=== PATIENT | male | born 1950 | race Caucasian/White ===

== ENCOUNTER 2018-04-01 11:20 | Inpatient (IN) | payer BC, OTHER ==
[2018-04-01 11:50] VITALS: BMI 30.7
--- NOTE | 2018-04-01 12:37 | PDOC ---
History of Present Illness - General Chief Complaint: Scabies Stated Complaint: BREATHING PROBLEM,RASH Time Seen by Provider: 04/01/18 12:37 - History of Present Illness Initial Comments: The patient is a 67M w/ a history of T2DM s/p R BKA who presents for evaluation for 1m of generalized rash/lesions over his torso, BUE, neck, and head. He states that they started when he moved here about 1m ago. He reports that they start as pustules that itch, he then scratches them until they open. They then scab but remain painful afterwards. No one else he knows has similar lesions. He lives alone. Denies fevers/chills, SANDHU, chest pain, V/C/D, weakness, dysuria, hematuria, or blood in his stool. 04/01/18 12:55 Past History - Past Medical History Allergies/Adverse Reactions: Allergies Allergy/AdvReac Type Severity Reaction Status Date / Time No Known Allergies Allergy Verified 04/01/18 11:47 Home Medications: Ambulatory Orders Insulin (Levemir) [Levemir Vial] 40 units SQ BID 04/01/18 Lisinopril 10 mg PO DAILY 04/01/18 metFORMIN HCL [Metformin HCl] 850 mg PO BID 04/01/18 COPD: No Diabetes: Yes Kidney Stones: Yes - Suicide/Smoking/Psychosocial Hx Smoking History: Former smoker Have you smoked in the past 12 months: No Information on smoking cessation initiated: No Hx Alcohol Use: No Drug/Substance Use Hx: No Review of Systems - Review of Systems Able to Perform ROS?: Yes Comments:: GENERAL/CONSTITUTIONAL: No fever or chills. No weakness HEAD, EYES, EARS, NOSE AND THROAT: No change in vision. No ear pain or discharge. No sore throat CARDIOVASCULAR: No chest pain or shortness of breath RESPIRATORY: Denies hemoptysis GASTROINTESTINAL: Denies vomiting, diarrhea or constipation GENITOURINARY: No dysuria, frequency, or change in urination MUSCULOSKELETAL: No joint or muscle swelling or pain. No neck or back pain SKIN: per HPI NEUROLOGIC: No headache, vertigo, loss of consciousness, or change in strength/ sensation ENDOCRINE: No increased thirst. No abnormal weight change HEMATOLOGIC/LYMPHATIC: No anemia, easy bleeding, or history of blood clots ALLERGIC/IMMUNOLOGIC: No hives or skin allergy 12/04/18 12:39 Is the patient limited [place] proficient: No *Physical Exam - Vital Signs Last Vital Signs Temp Pulse Resp BP Pulse Ox 97.4 F L 109 H 18 102/55 L 100 04/01/18 11:47 04/01/18 11:47 04/01/18 11:47 04/01/18 11:47 04/01/18 11:47 - Physical Exam Comments: GENERAL: Awake, alert, and fully oriented, in no acute distress HEAD: No signs of trauma, normocephalic, atraumatic EYES: PERRLA, EOMI, sclera anicteric, conjunctiva clear ENT: Hearing grossly normal, nares patent, oropharynx clear without exudates. Moist mucosa LUNGS: No distress, speaks full sentences, clear to auscultation bilaterally HEART: Regular rate and rhythm, normal S1 and S2, no murmurs appreciated, peripheral pulses normal and equal bilaterally ABDOMEN: Soft, nontender, normoactive bowel sounds. No guarding, no rebound. EXTREMITIES : Normal inspection, Normal range of motion, no edema NEUROLOGICAL: Diffuse hyperalgesia over upper body, love near lesions. Cranial nerves II through XII grossly intact. Normal speech, normal gait, no focal sensorimotor deficits SKIN:Diffuse rash over torso and BUE. Pt describes pustules that are pruritic then transform into what is seen on presentation. Clustered, scabbed lesions over torso, BUE, neck. 04/01/18 12:39 Moderate Sedation - Procedure Monitoring Vital Signs: Procedure Monitoring Vital Signs Temperature 97.4 F L 04/01/18 11:47 Pulse Rate 109 H 04/01/18 11:47 Respiratory Rate 18 04/01/18 11:47 Blood Pressure 102/55 L 04/01/18 11:47 O2 Sat by Pulse Oximetry (%) 100 04/01/18 11:47 ED Treatment Course - LABORATORY CBC & Chemistry Diagram: 04/01/18 15:00 04/01/18 15:00 Medical Decision Making - Medical Decision Making The patient is a 67M w/ a history of T2DM who presents for evaluation of 1 month of generalized upper body rash/lesions associated with hyperalgesia ED Course Tylenol 975mg PO once for pain 04/01/18 12:53 Fentanyl, Benadryl for symptoms Acyclovir for prevention of PHN Plan for admission for disseminated zoster 04/01/18 15:16 No leukocytosis No anemia 04/01/18 15:21 Hyperglycemia 644 -1L NS -10u SQ insulin 04/01/18 16:04 Will start LR @ 100cc/hr after bolus 04/01/18 16:25 Patient refusing HIV testing Will obtain hep panel Dispo: admitted for diffuse rash -ID and Derm consulted -Derm reports they will see pt tomorrow 04/01/18 20:11 *DC/Admit/Observation/Transfer Diagnosis at time of Disposition: Disseminated zoster - Discharge Dispostion Condition at time of disposition: Good Decision to Admit order: Yes - Referrals - Patient Instructions - Post Discharge Activity
[2018-04-01] MEDS ORDERED: ACETAMINOPHEN 325 MG TABLET (FP) PO ONE (12:45)
[2018-04-01] MEDS ORDERED: ACETAMINOPHEN 325 MG TABLET (FP) ONE (13:44)
[2018-04-01] MEDS ORDERED: ACYCLOVIR INJECTION 500 MG in DEXTROSE 5%-WATER - 100 ML IVPB ONE (14:42)
--- NOTE | 2018-04-01 15:15 | PDOC ---
Attending Attestation - Resident Resident Name: Steven Yepez - ED Attending Attestation I have performed the following: I have examined & evaluated the patient, The case was reviewed & discussed with the resident, I agree w/resident's findings & plan - HPI HPI: 04/01/18 15:10 67-year-old male with history of diabetes and hepatitis C followed in a [place] clinic presents with generalized painful rash for 1 month. Patient reports progressive development of localized pain to initially normal-appearing skin, followed by onset of what he calls a pimple, followed by itching and severe pain. The lesions have occurred throughout his body, mostly in the torso and arms, he has marked hyperesthesias all over his skin. Denies any travel, no sick contacts, no obvious insect bites or infestations. Did have chickenpox as a child, denies any ALLERGIES. No hiking, no weight loss or fevers or chills. denies IV drug use, reports HIV negative on recent testing - Physicial Exam PE: 04/01/18 15:12 Vitals as noted Well-appearing but uncomfortable due to hyperesthesias Scattered encrusted and mostly individual lesions throughout his torso, the more recent appear to have erythematous base, no intact vesicular lesions, no induration or abscesses or cellulitis. rash to torso, arms, upper legs, and L ear. no notable LAD - Medical Decision Making 04/01/18 15:14 67-year-old male with diffuse painful rash ongoing for a month, seems most consistent with disseminated zoster. Has hepatitis C, untreated. Labs Start acyclovir ID consult Admission 04/01/18 17:10 ID at bedside, low suspicion for disseminated zoster, ? hep dermatitis. maintain isolation per recs, proceed with admit. derm to see tomorrow Heart Score/ECG Review #1 ECG reviewed & interpreted by me at: 15:38 General ECG Interpretation: Sinus Rhythm, Normal Rate (94), Normal Intervals ( qtc 465), No acute ischemic changes (q waves III/AVF, prwp)
[2018-04-01 15:18] LABS: HEMOGLOBIN 14.5 GM/dL (11.7-16.9); MCH 32.3 pg (25.7-33.7); MCHC 36.3 g/dl (32.0-35.9); MEAN PLT VOLUME 8.7 fl (7.5-11.1); PLATELET COUNT 145 K/MM3 (134-434); RBC 4.49 M/mm3 (4.00-5.60); RDW 13.9 % (11.9-15.9); WHITE BLOOD COUNT 7.2 K/mm3 (4.0-10.0)
[2018-04-01 15:54] LABS: ALK PHOS 125 U/L (45-117); ANION GAP 6 MMOL/L (8-16); BLOOD UREA NITROGEN 24 mg/dL (7-18); CHLORIDE 93 mmol/L (98-107); CO2 29 mmol/L (21-32); CREATININE 1.5 mg/dL (0.55-1.3); POTASSIUM 4.3 mmol/L (3.5-5.1); SGOT/AST 63 U/L (15-37); SGPT/ALT 65 U/L (13-61); SODIUM 128 mmol/L (136-145); TOT PROT 6.3 g/dl (6.4-8.2)
[2018-04-01 15:55] LABS: GLUCOSE,RANDOM 644 mg/dL (74-106)
[2018-04-01] MEDS ORDERED: SODIUM CHLORIDE 0.9% 500 ML INFUS.BAG IV ONE (16:02)
[2018-04-01] MEDS ORDERED: INSULIN REGULAR HUMAN 100 UNITS/ML *VIAL SQ ONE (16:08)
[2018-04-01] MEDS ORDERED: INSULIN (NOVOLOG) ASPART 100 UNITS/ML 10ML VIAL ONE ×2 (16:08→22:03)
[2018-04-01] MEDS: LACTATED RINGERS SOLUTION 1,000 ML/1,000 ML INFUS.BAG IV SCH (17:17)
--- NOTE | 2018-04-01 18:26 | CON.ID ---
Consult Consult Specialty:: infectious disease Referred by:: hospitalist Reason for Consultation:: rash - History of Present Illness Chief Complaint: 67 yo man with DM and Hep c (untreated). with 2 to 3 month history of pruritic rash History of Present Illness: no fevers no new meds no travel pet dog lives in an apt in [place] no bed bugs, no one else with rash no fevers no oral lesions notes intensely pruritic maculopapular rash that has intermittenlty appeared on legs, buttocks, scalp line no response to topical steroids noted in Ed to have very elevated blood sugar doesnt check his sugars daily doesn't know the name of his diabetic doctor former heroin user reports he is hiv negative hep c positive - History Source History Provided By: Patient, Medical Record Limitations to Obtaining History: No Limitations - Past Medical History Hepatobiliary: Yes: Hepatitis C Endocrine: Yes: Diabetes Mellitus - Past Surgical History Additional Surgical History: bka right, left TMA - Alcohol/Substance Use Hx Alcohol Use: No - Smoking History Smoking history: Former smoker Have you smoked in the past 12 months: No - Social History ADL: Independent History of Recent Travel: No Home Medications - Allergies Allergies/Adverse Reactions: Allergies Allergy/AdvReac Type Severity Reaction Status Date / Time No Known Allergies Allergy Verified 04/01/18 11:47 - Home Medications Home Medications: Ambulatory Orders Insulin (Levemir) [Levemir Vial] 40 units SQ BID 04/01/18 Lisinopril 10 mg PO DAILY 04/01/18 metFORMIN HCL [Metformin HCl] 850 mg PO BID 04/01/18 Review of Systems - Review of Systems Constitutional: reports: No Symptoms. denies: Chills, Diaphoresis, Fever Eyes: reports: No Symptoms HENT: reports: No Symptoms. denies: Difficult Swallowing Neck: reports: No Symptoms Cardiovascular: reports: No Symptoms. denies: Chest Pain Respiratory: denies: Cough, SOB Gastrointestinal: reports: No Symptoms. denies: Abdominal Pain Genitourinary: reports: No Symptoms Physical Exam Vital Signs: Vital Signs Temperature 97.5 F L 04/01/18 15:56 Pulse Rate 95 H 04/01/18 15:56 Respiratory Rate 18 04/01/18 15:56 Blood Pressure 144/78 04/01/18 15:56 O2 Sat by Pulse Oximetry (%) 99 04/01/18 15:56 Constitutional: Yes: Well Nourished, No Distress, Calm Eyes: Yes: Conjunctiva Clear HENT: Yes: Atraumatic, Normocephalic. No: Thrush, Other Neck: Yes: Supple Cardiovascular: Yes: Regular Rate and Rhythm Respiratory: Yes: Regular, CTA Bilaterally Gastrointestinal: Yes: Normal Bowel Sounds, Soft Extremities: Yes: Other (well healed right bka, dry scab on left TMA site) Integumentary: Yes: Rash (scattered dry papular rash scattered onlower back buttocks, back of neck, no lesions on pallms, webs of fingers, elbows, axilla or groin) Labs: CBC, BMP 04/01/18 15:00 04/01/18 15:00 Problem List - Problems (1) Rash and nonspecific skin eruption Code(s): R21 - RASH AND OTHER NONSPECIFIC SKIN ERUPTION (2) Uncontrolled diabetes mellitus Code(s): E11.65 - TYPE 2 DIABETES MELLITUS WITH HYPERGLYCEMIA (3) Hep C w/o coma, chronic Code(s): B18.2 - CHRONIC VIRAL HEPATITIS C (4) Abnormal LFTs Code(s): R94.5 - ABNORMAL RESULTS OF LIVER FUNCTION STUDIES Assessment/Plan ssupect rash is related to DM/hep c- does not look infectious continue contact isolation until evaluated by dermatology check hgbaic check afp given history of hep c and abnl lfts d/w hospitalist
--- NOTE | 2018-04-01 20:19 | HP ---
CHIEF COMPLAINT: Itchy rash on torso, arms, neck and head PCP: HISTORY OF PRESENT ILLNESS: 67 year old male with a PMH of DM s/p R BKA, Hep C (untreated), and HTN presented to the ED with an itchy rash over his body that has worsened over 2-3 months. He has treated it with hydrocortisone cream, but the rash and itching have persisted. He has not had any contact with anyone who also has an itchy rash, he does not believe his apartment is infested with bed bugs. He has never had a rash like this in the past. He recently moved to an apartment in [place] from the [place]. He owns a dog but has been unable to keep it because his current building does not allow dogs. He is a former IV heroin user and contracted hepatitis C. He has never been treated. Denies fevers, SANDHU, congestion, SOB, chest pain, palpitations, n/v/d. Upon admission to the ED, labs notable for extremely elevated glucose of 644. He was given a dose of Acyclovir, benadryl, Fentanyl, and placed on a insulin drip. He was seen by ID specialist Dr. Sherman who does not believe the rash is of infectious origin. Patient on contact precautions until Derm consult has seen him. Recent Travel: No PAST MEDICAL HISTORY: Hepatitis C DM HTN PAST SURGICAL HISTORY: Right BKA Left toes amputation Social History: Lives alone in an apartment, recently moved to [place] from the [place]. Has a Yorkie. Smoking: Former Alcohol: Denies Drugs: Former Heroin user Allergies No Known Allergies Allergy (Verified 04/01/18 11:47) HOME MEDICATIONS: Home Medications Medication Instructions Recorded Insulin (Levemir) [Levemir Vial] 40 units SQ BID 04/01/18 Lisinopril 10 mg PO DAILY 04/01/18 metFORMIN HCL [Metformin HCl] 850 mg PO BID 04/01/18 REVIEW OF SYSTEMS CONSTITUTIONAL: Absent: fever, chills, diaphoresis, generalized weakness, malaise, loss of appetite, weight change HEENT: Absent: rhinorrhea, nasal congestion, throat pain, throat swelling, difficulty swallowing, mouth swelling, ear pain, eye pain, visual changes CARDIOVASCULAR: Absent: chest pain, syncope, palpitations, irregular heart rate, lightheadedness , peripheral edema RESPIRATORY: Absent: cough, shortness of breath, dyspnea with exertion, orthopnea, wheezing, stridor, hemoptysis GASTROINTESTINAL: Absent: abdominal pain, abdominal distension, nausea, vomiting, diarrhea, constipation, melena, hematochezia GENITOURINARY: Absent: dysuria, frequency, urgency, hesitancy, hematuria, flank pain, genital pain MUSCULOSKELETAL: Absent: myalgia, arthralgia, joint swelling, back pain, neck pain SKIN: (+) rash and itching Absent: pallor HEMATOLOGIC/IMMUNOLOGIC: Absent: easy bleeding, easy bruising, lymphadenopathy, frequent infections ENDOCRINE: Absent: unexplained weight gain, unexplained weight loss, heat intolerance, cold intolerance NEUROLOGIC: Absent: headache, focal weakness or paresthesias, dizziness, unsteady gait, seizure, mental status changes, bladder or bowel incontinence PSYCHIATRIC: Absent: anxiety, depression, suicidal or homicidal ideation, hallucinations. PHYSICAL EXAMINATION Vital Signs - 24 hr 04/01/18 04/01/18 11:47 15:56 Temperature 97.4 F L 97.5 F L Pulse Rate 109 H Pulse Rate [ 95 H Right] Respiratory 18 18 Rate Blood Pressure 102/55 L Blood Pressure 144/78 [Left Arm] O2 Sat by Pulse 100 99 Oximetry (%) GENERAL: Awake, alert, and fully oriented, in no acute distress. HEAD: Normal with no signs of trauma. EYES: Pupils equal, round and reactive to light, extraocular movements intact, sclera anicteric, conjunctiva clear. No lid lag. EARS, NOSE, THROAT: Ears normal, nares patent, oropharynx clear without exudates. Moist mucous membranes. NECK: Normal range of motion, supple without lymphadenopathy, JVD, or masses. LUNGS: Breath sounds equal, clear to auscultation bilaterally. No wheezes, and no crackles. No accessory muscle use. HEART: Regular rate and rhythm, normal S1 and S2 without murmur, rub or gallop. ABDOMEN: Soft, nontender, not distended, normoactive bowel sounds, no guarding, no rebound, no masses. No hepatomegaly or splenomegaly. MUSCULOSKELETAL: Normal range of motion at all joints. No bony deformities or tenderness. No CVA tenderness. UPPER EXTREMITIES: 2+ pulses, warm, well-perfused. No cyanosis. No clubbing. No peripheral edema. LOWER EXTREMITIES: Right BKA, healed surgical incision to stump, no edema or erythema, Left toes amputated, no calf tenderness. No peripheral edema. NEUROLOGICAL: No facial droop, tongue midline, normal speech. Normal gait. PSYCHIATRIC: Cooperative. Good eye contact. Flat affect SKIN: Diffuse, scattered, round, raised, excoriated patches to back, posterior neck, scalp, thighs, arms. no drainage, Warm, dry, normal turgor, no rashes or lesions noted, normal capillary refill. Laboratory Results - last 24 hr 04/01/18 04/01/18 15:00 15:00 WBC 7.2 RBC 4.49 Hgb 14.5 Hct 40.0 MCV 89.0 MCH 32.3 MCHC 36.3 H RDW 13.9 Plt Count 145 MPV 8.7 Sodium 128 L Potassium 4.3 Chloride 93 L Carbon Dioxide 29 Anion Gap 6 L BUN 24 H Creatinine 1.5 H Creat Clearance w eGFR 46.82 Random Glucose 644 H* Calcium 8.0 L Total Bilirubin 1.0 AST 63 H ALT 65 H Alkaline Phosphatase 125 H Total Protein 6.3 L Albumin 2.0 L EKG: NSR, rate 94, QTc 465, no signs of ischemic disease CXR: No acute cardiopulmonary disease present. Old left and right rib fractures. ASSESSMENT/PLAN: 67 year old male with a PMH of DM, Hep C, and HTN presented to the ED with an itchy rash over his body that has worsened over 2-3 months. His glucose upon admission was 644. He was admitted for and derm consult. Puritic Rash - Seen by ID specialist Dr. Sherman who does not believe rash is d/t infectious etiology - Possibly secondary to Hep C vs DM vs Parasite - Diphenhydramine 50 mg PO q6H PRN for itching - Derm consult with Dr. Heck ordered - Contact isolation until cleared by derm - ESR ordered DM - Uncontrolled; glucose 644 upon admission - R BKA, and left toes amputated - Aterial/janna doppler of LLE ordered - HOLD home Metformin 850 BID while inpatient - Continue home levemir 40U SQ BID - Hgb A1c ordered - Monitor glucose q1hr until stable - SS with novolog q4h SINGH - BUN/Cr 24/1.5 - No known baseline - Repeat BMP ordered - Consider nephrology consult Hyponatremia - Moderate; Na 128 - Appears euvolemic - Repeat BMP and TSH ordered HTN - Continue home Lisinopril 10 mg PO qday Hepatitis C - Former IV heroin user - Anicteric - Elevated LFTs - AST 63 - ALT 65 - Alk phos 125 - Has not been on medication, had been seen by GI in the past about possibly starting Harvoni - HIV negative - Hepatitis panel pending - AFP ordered to r/o hepatocellular carcinoma Prophylaxis - DVT: Heparin SQ FEN - PO intake adequate - Replete as needed - Diabetic Diet Disp: Patient requires further inpatient care. Visit type - Emergency Visit Emergency Visit: Yes ED Registration Date: 04/01/18 Care time: The patient presented to the Emergency Department on the above date and was hospitalized for further evaluation of their emergent condition. - New Patient This patient is new to me today: Yes Date on this admission: 04/01/18 - Critical Care Critical Care patient: No
[2018-04-01 21:55] LABS: ALBUMIN 1.8 g/dl (3.4-5.0); ALK PHOS 104 U/L (45-117); ANION GAP 9 MMOL/L (8-16); BILIRUBIN,TOTAL 0.7 mg/dL (0.2-1); BLOOD UREA NITROGEN 25 mg/dL (7-18); CALCIUM 7.3 mg/dL (8.5-10.1); CHLORIDE 101 mmol/L (98-107); CO2 25 mmol/L (21-32); CREATININE 1.2 mg/dL (0.55-1.3); POTASSIUM 4.3 mmol/L (3.5-5.1); SGOT/AST 57 U/L (15-37); SGPT/ALT 60 U/L (13-61); SODIUM 134 mmol/L (136-145); TOT PROT 5.5 g/dl (6.4-8.2)
[2018-04-01 21:57] LABS: GLUCOSE,RANDOM 524 mg/dL (74-106)
[2018-04-01] MEDS ORDERED: INSULIN (NOVOLOG) ASPART 100 UNITS/ML 10ML VIAL SQ ONE (21:58)
[2018-04-01] MEDS: INSULIN SLIDING SCALE (NOVOLOG) 1 VIAL SQ SCH (21:59)
[2018-04-02] MEDS ORDERED: ACETAMINOPHEN 500 MG TABLET (FP) PO ONE (00:41)
[2018-04-02] MEDS: HEPARIN NA (PORCINE) 5,000 UNITS/ML 1ML VIAL SQ SCH ×2 (01:06→06:34)
[2018-04-02] MEDS: INSULIN (LEVEMIR) 100 UNITS/ML UNITS SQ SCH ×2 (01:06→06:34)
[2018-04-02] MEDS: INSULIN SLIDING SCALE (NOVOLOG) 1 VIAL SQ SCH ×4 (01:07→10:54)
[2018-04-02] MEDS: diphenhydrAMINE HCL 25 MG CAPSULE (FP) PO PRN ×2 (03:52→09:59)
--- NOTE | 2018-04-02 07:34 | DS ---
Physical Exam: SUBJECTIVE: Patient seen and examined; was very itchy which is still present though somewhat improved with PRN medications. ID spoke with me yesterday; they do not believe this is diseminated zoster and recommended derm consultation. I spoke with Dr Heck this morning who told me that she would see the patient in her office and do all testing and Rx's for the derm related issue from her office. This was communicated to the patient. He will be discharged from the hospital for STAT followup at the derm office of Dr. Heck. Did verbalize understanding. 10 sys ROS done and negative aside from HPI OBJECTIVE: Vital Signs Period Temp Pulse Resp BP Sys/Shannon Pulse Ox Last 24 Hr 97.4 F-98 F 82-109 18-18 102-144/55-81 99-100 PHYSICAL EXAM GENERAL: The patient is awake, alert, and fully oriented, in no acute distress. HEAD: Normal with no signs of trauma. EYES: PERRL, extraocular movements intact, sclera anicteric, conjunctiva clear. ENT: Ears normal, nares patent, oropharynx clear without exudates, moist mucous membranes. NECK: Trachea midline, full range of motion, supple. LUNGS: Breath sounds equal, clear to auscultation bilaterally HEART: Regular rate and rhythm, S1, S2 without murmur, rub or gallop. ABDOMEN: Soft, nontender, nondistended, normoactive bowel sounds EXTREMITIES: 2+ pulses, warm, well-perfused, no edema.; BKA and TMA observed NEUROLOGICAL: Cranial nerves II through XII grossly intact. Normal speech PSYCH: Normal mood, normal affect. SKIN: scattered lesions with excoriations surrounding; circular 1x1cm not bleeding or appearing infected. LABS Laboratory Results - last 24 hr 04/01/18 04/01/18 04/01/18 15:00 15:00 20:15 WBC 7.2 RBC 4.49 Hgb 14.5 Hct 40.0 MCV 89.0 MCH 32.3 MCHC 36.3 H RDW 13.9 Plt Count 145 MPV 8.7 Sodium 128 L 134 L Potassium 4.3 4.3 Chloride 93 L 101 Carbon Dioxide 29 25 Anion Gap 6 L 9 BUN 24 H 25 H Creatinine 1.5 H 1.2 Creat Clearance w eGFR 46.82 > 60 POC Glucometer Random Glucose 644 H* 524 H* Calcium 8.0 L 7.3 L Total Bilirubin 1.0 0.7 AST 63 H 57 H ALT 65 H 60 Alkaline Phosphatase 125 H 104 Total Protein 6.3 L 5.5 L Albumin 2.0 L 1.8 L HIV 1&2 Antibody Screen HIV P24 Antigen 04/01/18 04/02/18 04/02/18 20:20 00:13 06:11 WBC RBC Hgb Hct MCV MCH MCHC RDW Plt Count MPV Sodium Potassium Chloride Carbon Dioxide Anion Gap BUN Creatinine Creat Clearance w eGFR POC Glucometer 386 119 Random Glucose Calcium Total Bilirubin AST ALT Alkaline Phosphatase Total Protein Albumin HIV 1&2 Antibody Screen Negative HIV P24 Antigen Negative HOSPITAL COURSE: Date of Admission:04/01/18 Date of Discharge: 04/02/18 1) Pruritic Rash -Seen by ID; no concern for disseminated zoster, etc. Recommended derm referral. Being sent to derm office today upon DC. Discussed with Dr. Heck. She will handle all prescribing for steroids, etc. but I did Rx him some benadryl for PRN. -ID thinks could be related to his untreated HCV vs. his uncontrolled DM. We will address those issues separately. 2) T2DM, uncontrolled -Sugars initially in the 600s; went down with appropriate tx. A1c in 12-range. He has elevated risk per ASCVD and qualifies for a moderate to high intensity statin which was started today. -I have serious concerns that his compliance is the issue; will DC him on his home regimine and have him see PCP in 3-5 days. He states that he used to live in the [place] and now he is in [place]. I question if access to care could be an issue, expecially as he is an amputee. Resent his home Rx for levemir and metformin. 3) S/P Amputation -Stereotyped PVD changes on remaining leg; recommend continued OP surveilance with ABIs and US. 4) HLD -New diagnosis; by ASCVD risk would qualify for moderate to high intensity staitin. Atorva 40 PO qHS and CMP at followup with PCP in 3-5 days. 5) Untreated HCV -States he sees someone in [place]. -Followup AFP as outpatient (result pending); referral to specialist to get him on Harvoni, etc. 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 Was very mild. 8) Hypoalbuminemia -Due to chronic disease with questionable nutritional component. -Followup OP 9) Obesity -BMI above 30; followup with PCP for lifestyle modifications. Full Code To followup OP: -AFP -Hepatitis Pannel Followups: -Dermatology (today upon DC with Dr. Heck) -PCP (3-5 days; will need CMP and reviewing the pending labs at that time) Thank you to the primary service for allowing [facility] to take part in the ongoing care of your patient. Minutes to complete discharge: 45 Discharge Summary Reason For Visit: DISSEMINATED HERPES ZOSTER,DM,HYPERGLYCEMIA Current Active Problems Abnormal LFTs (Acute) Disseminated zoster (Acute) Hep C w/o coma, chronic (Acute) Rash and nonspecific skin eruption (Acute) Uncontrolled diabetes mellitus (Acute) Condition: Good - Instructions Diet, Activity, Other Instructions: Diabetic Diet Activity as tolerated Go to Dermatology office of Dr. Heck IMMEDIATELY after leaving the hospital ; they are expecting you Followup with primary care 3-5 days. If no PCP that is accessable please nicol [phone] to schedule followup with [facility] (resident clinic). Follow all instructions from dermatology Referrals: Vivienne Heck MD [Staff Physician] - (Go to her clinic IMMEDIATELY after leaving hospital; they are expecting you for appointment.) primary care,pcp [Other] - 1 Week (Within 3-5 days Followup AFP, hepatitis pannel results. Need followup CMP as just started statin.) Disposition: HOME - Home Medications Comprehensive Discharge Medication List: Ambulatory Orders Insulin (Levemir) [Levemir Vial] 40 units SQ BID 04/01/18 Lisinopril 10 mg PO DAILY 04/01/18 metFORMIN HCL [Metformin HCl] 850 mg PO BID 04/01/18 This patient is new to me today: No Emergency Visit: No Critical Care patient: No - Discharge Referral Referred to [facility] No
[2018-04-02 08:11] LABS: CHOLESTEROL 148 mg/dL (50-200); HDL CHOLESTEROL 30 mg/dL (40-60); TRIGLYCERIDES 433 mg/dL (0-150)
[2018-04-02 08:19] LABS: ANION GAP 6 MMOL/L (8-16); BLOOD UREA NITROGEN 24 mg/dL (7-18); CALCIUM 7.8 mg/dL (8.5-10.1); CHLORIDE 105 mmol/L (98-107); CO2 29 mmol/L (21-32); CREATININE 0.9 mg/dL (0.55-1.3); GLUCOSE,RANDOM 161 mg/dL (74-106); MAGNESIUM 1.8 mg/dL (1.8-2.4); POTASSIUM 3.8 mmol/L (3.5-5.1); SODIUM 140 mmol/L (136-145)
[2018-04-02] MEDS ORDERED: LISINOPRIL 10 MG TABLET (FP) PO SCH (10:00)
[2018-04-02] MEDS ORDERED: NICOTINE 21 MG/24 HOURS TOPICAL PATCH TD SCH (10:00)
[2018-04-02 10:02] LABS: HEMATOCRIT 39.4 % (35.4-49); HEMOGLOBIN 14.3 GM/dL (11.7-16.9); MCH 32.2 pg (25.7-33.7); MCHC 36.3 g/dl (32.0-35.9); MEAN CELL VOLUME 88.8 fl (80-96); MEAN PLT VOLUME 9.1 fl (7.5-11.1); PLATELET COUNT 135 K/MM3 (134-434); RBC 4.44 M/mm3 (4.00-5.60)
[2018-04-02] MEDS: LACTATED RINGERS SOLUTION 1,000 ML/1,000 ML INFUS.BAG IV SCH (10:25)
[2018-04-02] MEDS ORDERED: INSULIN (NOVOLOG) ASPART 100 UNITS/ML 10ML VIAL ONE (10:48)
[2018-04-02 11:38] VITALS: BP 130/80; PULSE 76; TEMP 98
--- NOTE | 2018-04-02 13:03 | EKG ---
Test Reason : Blood Pressure : / mmHG Vent. Rate : 094 BPM Atrial Rate : 094 BPM P-R Int : 178 ms QRS Dur : 080 ms QT Int : 372 ms P-R-T Axes : 047 -20 021 degrees QTc Int : 465 ms NORMAL SINUS RHYTHM INFERIOR INFARCT , AGE UNDETERMINED ANTERIOR INFARCT , AGE UNDETERMINED ABNORMAL ECG WHEN COMPARED WITH ECG OF 01-MAY-2010 11:00, INFERIOR INFARCT IS NOW PRESENT INVERTED T WAVES HAVE REPLACED NONSPECIFIC T WAVE ABNORMALITY IN ANTERIOR LEADS Confirmed by DIANA VO, KAT ([id number]) on 04/02/2018 1:03:14 PM Referred By: Confirmed By:KAT ORTIZ MD
[2018-04-02] MEDS ORDERED: ATORVASTATIN CA 40 MG TABLET (FP) PO SCH (22:00)
[2018-04-03 05:25] LABS: HBSAG SCREEN Negative (Negative); HEP B CORE AB, TOT Positive (Negative)
== END 2018-04-02 13:38 | disposition home or self-care (01) | DRG 638 ==
LOC: JER 11:20 → JERBED 14:50 → J8W 23:52
PROVIDERS: ADMIT Internal Medicine; ATTEND Internal Medicine
DX: E11.65 Type 2 diabetes mellitus with hyperglycemia (principal); E87.1 Hypo-osmolality and hyponatremia; N17.9 Acute kidney failure, unspecified; R21 Rash and other nonspecific skin eruption; B18.2 Chronic viral hepatitis C; I10 Essential (primary) hypertension; E66.9 Obesity, unspecified; Z68.30 Body mass index [BMI] 30.0-30.9, adult; R94.5 Abnormal results of liver function studies; E88.09 Other disorders of plasma-protein metabolism, not elsewhere classified; E78.5 Hyperlipidemia, unspecified; Z87.891 Personal history of nicotine dependence; Z89.511 Acquired absence of right leg below knee; Z87.442 Personal history of urinary calculi
CPT/HCPCS: 36415; 71045-TC-FY; 80048; 80053; 80061; 82105; 82962; 83036; 83721; 83735; 84443; 85027; 85651; 86704; 86706; 86708; 87340; 87389; 87522; 93005; 93010; 99285-25; J1644

== ENCOUNTER 2019-01-10 13:27 | Inpatient (IN) | payer OTHER ==
--- NOTE | 2019-01-10 14:16 | PDOC ---
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 Per the patient, the wound on the lateral right knee occurred 1 month ago due to an ill fitted prosthesis. Over the course of 4 days, there is increased purulent discharge with foul odor. He was given abx for 1 week (unknown type) 3 weeks ago and it did not eusebio the symptoms. Denies the following: fever, chills, chest pain, SOB, abdominal pain, dysuria, hematuria, diarrhea, nausea, vomiting , and hematochezia. He has used collagenase and silvadene. Allergies: NKDA Past History - Past Medical History Allergies/Adverse Reactions: Allergies Allergy/AdvReac Type Severity Reaction Status Date / Time No Known Allergies Allergy Verified 04/01/18 11:47 Home Medications: Ambulatory Orders Atorvastatin Ca [Lipitor] 40 mg PO HS #30 tablet 04/02/18 Diphenhydramine HCl [Benadryl Capsule -] 50 mg PO Q6H PRN #60 capsule 04/02/18 Insulin (Levemir) [Levemir Vial] 40 units SQ BID #3 bot 04/02/18 Lisinopril 10 mg PO DAILY #30 tablet 04/02/18 Nicotine Patch [Nicoderm Patch -] 21 mg TD DAILY #14 patch 04/02/18 metFORMIN HCL [Metformin HCl] 850 mg PO BID #60 tablet 04/02/18 COPD: No Diabetes: Yes Kidney Stones: Yes - Suicide/Smoking/Psychosocial Hx Smoking History: Never smoked Have you smoked in the past 12 months: No Hx Alcohol Use: No Drug/Substance Use Hx: No Review of Systems - Review of Systems Able to Perform ROS?: Yes Is the patient limited Mohawk proficient: No Constitutional: No: Chills, Diaphoresis, Fever, Weakness HEENTM: No: Eye Pain, Ear Pain, Nose Pain, Throat Pain, Mouth Pain Respiratory: No: Cough, Shortness of Breath *Physical Exam - Vital Signs Last Vital Signs Temp Pulse Resp BP Pulse Ox 98 F 88 20 138/76 100 01/10/19 13:30 01/10/19 13:30 01/10/19 13:30 01/10/19 13:30 01/10/19 13:30 ED Treatment Course - LABORATORY CBC & Chemistry Diagram: 01/10/19 14:37 01/10/19 14:34 *DC/Admit/Observation/Transfer Diagnosis at time of Disposition: Wound discharge - Referrals - Patient Instructions - Post Discharge Activity
[2019-01-10] MEDS ORDERED: ACETAMINOPHEN 1000 MG/100 ML VIAL (NON FORMULARY) IVPB ONE (14:21)
[2019-01-10] MEDS ORDERED: PIPERACILLIN/TAZOB 3.375 GM 3.375 GM in DEXTROSE 5%-WATER - 50 ML IVPB ONE (14:21)
[2019-01-10] MEDS ORDERED: VANCOMYCIN 1,000 MG in DEXTROSE 5%-WATER - 250 ML IVPB ONE (14:21)
[2019-01-10] MEDS ORDERED: ACETAMINOPHEN INJECTION 100 ML IVPB ONE (14:27)
[2019-01-10] MEDS ORDERED: VANCOMYCIN 1 GRAM (PRE-DOCKED) 1,000 MG/250 ML BAG IVPB ONE (14:27)
[2019-01-10] MEDS ORDERED: PIPERACILLIN/TAZOB 3.375 GM 3.375 GM/50 ML BAG IVPB ONE (14:28)
--- NOTE | 2019-01-10 14:30 | PDOC ---
Attending Attestation - Resident Resident Name: PiyushOswald - ED Attending Attestation I have performed the following: I have examined & evaluated the patient, The case was reviewed & discussed with the resident, I agree w/resident's findings & plan, Exceptions are as noted - HPI HPI: 01/10/19 19:00 Mr. Moran is a 68 yo M h/o DM (currently on insulin) and Right BTK amputation 2013, presenting with worsening pain and foul odor from right AKA stump site. The wound initially began 1 month ago due to an ill fitted prosthesis. He was given abx 3 weeks ago for 1 week which did not improve his wound. Over the past 4 days, he has noted increased purulent malodorous discharge with foul odor. No fever, chills. (+) right AKA site tenderness - Physicial Exam PE: 01/10/19 14:30 GENERAL: The patient is in no acute distress. ENT: Ears normal, nares patent, oropharynx clear without exudates. Moist mucous membranes. NECK: Normal range of motion, supple LUNGS: Breath sounds equal, clear to auscultation bilaterally. No wheezes, and no crackles. HEART:Regular rate and rhythm, normal S1 and S2 without murmur, rub or gallop. ABDOMEN: Soft, nontender, normoactive bowel sounds. EXTREMITIES: Right AKA stump site clean, right lateral lesion NEUROLOGICAL: Cranial nerves II through XII grossly intact. Normal speech. No focal neurological deficits. SKIN: Warm, Dry, normal turgor, no rashes or lesions noted. 01/10/19 19:06 - Medical Decision Making 01/10/19 19:03 EKG: NSR rate of 79 bpm, axis nml, intervals nml, no st elevation or depression - j point elevation v2 01/10/19 19:04 Laboratory Tests 01/10/19 01/10/19 14:34 14:37 WBC 5.4 Hgb 11.2 L Hct 31.9 L D Plt Count 128 L BUN 29.0 H Creatinine 1.1 Xray: superficial wound defect noted, no air in tissues Wound culture sent Abx Admitted
[2019-01-10 14:48] LABS: EOS % 1.9 % (0-4.5); HEMATOCRIT 31.9 % (35.4-49); HEMOGLOBIN 11.2 GM/dL (11.7-16.9); LYMPH % 24.5 % (8-40); MCH 31.8 pg (25.7-33.7); MCHC 35.3 g/dl (32.0-35.9); MEAN CELL VOLUME 90.2 fl (80-96); MEAN PLT VOLUME 8.3 fl (7.5-11.1); MONO % 6.3 % (3.8-10.2); NEUT % 66.3 % (42.8-82.8); PLATELET COUNT 128 K/MM3 (134-434); RBC 3.53 M/mm3 (4.00-5.60); RDW 15.6 % (11.9-15.9); WHITE BLOOD COUNT 5.4 K/mm3 (4.0-10.0)
[2019-01-10 15:17] LABS: ALBUMIN 1.8 g/dl (3.4-5.0); BILIRUBIN,TOTAL 0.7 mg/dL (0.2-1); CALCIUM 8.3 mg/dL (8.5-10.1); CREATININE 1.1 mg/dL (0.55-1.3); POTASSIUM 3.7 mmol/L (3.5-5.1); TOT PROT 6.1 g/dl (6.4-8.2)
[2019-01-10] MEDS ORDERED: ACETAMINOPHEN 325 MG TABLET (FP) PO PRN (17:48)
[2019-01-10] MEDS ORDERED: morphine CARPU-JECT 4 MG/1 ML DISP.SYRIN IVPUSH ONE (17:53)
[2019-01-10] MEDS ORDERED: PIPERACILLIN/TAZOB 3.375 GM 3.375 GM in DEXTROSE 5%-WATER - 50 ML IVPB SCH (18:00)
[2019-01-10] MEDS ORDERED: morphine SULFATE 4 MG/ML VIAL ONE (18:38)
[2019-01-10] MEDS: PIPERACILLIN/TAZOB 3.375 GM 3.375 GM in DEXTROSE 5%-WATER - 50 ML IVPB SCH (18:44)
--- NOTE | 2019-01-10 20:47 | HP ---
Admitting History and Physical - Primary Care Physician PCP: Richelle Larios - Admission Chief Complaint: right leg pain History of Present Illness: 68 year old male PMHx DM2, HLD, right BKA presents with progressively worsening right lateral knee pain, ulceration and drainage. Patient states about a month ago he used a prosthesis that was too big and cut his leg and since then he has had a nonhealing wound. He saw PCP and was put on PO antibiotics which he finished about 2 weeks ago without improvement. He denies fever/chills, nvd. no cp, sob, palpitations History Source: Patient Limitations to Obtaining History: No Limitations - Past Medical History Cardiovascular: Yes: Hyperlipdemia Hepatobiliary: Yes: Hepatitis C (untreated) Renal/: Yes: Renal Calculi Endocrine: Yes: Diabetes Mellitus - Past Surgical History Additional Past Surgical History: right BKA, left TMA - Smoking History Smoking history: Former smoker Have you smoked in the past 12 months: No - Alcohol/Substance Use Hx Alcohol Use: No History of Substance Use: reports: Heroin - Social History Usual Living Arrangement: Yes: Alone ADL: Independent History of Recent Travel: No Home Medications - Allergies Allergies/Adverse Reactions: Allergies Allergy/AdvReac Type Severity Reaction Status Date / Time No Known Allergies Allergy Verified 04/01/18 11:47 - Home Medications Home Medications: Ambulatory Orders Atorvastatin Ca [Lipitor] 40 mg PO HS #30 tablet 04/02/18 Diphenhydramine HCl [Benadryl Capsule -] 50 mg PO Q6H PRN #60 capsule 04/02/18 Insulin (Levemir) [Levemir Vial] 40 units SQ BID #3 bot 04/02/18 Lisinopril 10 mg PO DAILY #30 tablet 04/02/18 Nicotine Patch [Nicoderm Patch -] 21 mg TD DAILY #14 patch 04/02/18 metFORMIN HCL [Metformin HCl] 850 mg PO BID #60 tablet 04/02/18 Family Disease History - Family Disease History Family History: Denies Review of Systems - Review of Systems Constitutional: reports: No Symptoms Eyes: reports: No Symptoms HENT: reports: No Symptoms Neck: reports: No Symptoms Cardiovascular: reports: No Symptoms Respiratory: reports: No Symptoms Gastrointestinal: reports: No Symptoms Genitourinary: reports: No Symptoms Breasts: reports: No Symptoms Reported Musculoskeletal: reports: Extremity Pain (right leg) Integumentary: reports: No Symptoms Neurological: reports: No Symptoms Endocrine: reports: No Symptoms Hematology/Lymphatic: reports: No Symptoms Psychiatric: reports: No Symptoms Physical Examination Vital Signs: Vital Signs Temperature 98 F 01/10/19 13:30 Pulse Rate 93 H 01/10/19 20:39 Respiratory Rate 16 01/10/19 20:39 Blood Pressure 100/54 L 01/10/19 20:39 O2 Sat by Pulse Oximetry (%) 98 01/10/19 20:39 Constitutional: Yes: Well Nourished, No Distress, Calm Cardiovascular: Yes: WNL, Regular Rate and Rhythm Respiratory: Yes: WNL, Regular, CTA Bilaterally Gastrointestinal: Yes: WNL, Normal Bowel Sounds, Soft Musculoskeletal: Yes: WNL Extremities: Yes: Amputation (right bka, lateral knee with wound draining pus and surrounding erythema left TMA) Edema: Yes Edema: LLE: 2+ Neurological: Yes: WNL, Alert, Oriented ...Motor Strength: WNL Labs: CBC, BMP 01/10/19 14:37 01/10/19 14:34 Imaging - Results Chest X-ray: Report Reviewed X-ray: Pending Problem List - Problems (1) Diabetes mellitus Code(s): E11.9 - TYPE 2 DIABETES MELLITUS WITHOUT COMPLICATIONS (2) HLD (hyperlipidemia) Code(s): E78.5 - HYPERLIPIDEMIA, UNSPECIFIED (3) Wound discharge Code(s): T14.8XXA - OTHER INJURY OF UNSPECIFIED BODY REGION, INITIAL ENCOUNTER (4) Hep C w/o coma, chronic Code(s): B18.2 - CHRONIC VIRAL HEPATITIS C (5) Uncontrolled diabetes mellitus Code(s): E11.65 - TYPE 2 DIABETES MELLITUS WITH HYPERGLYCEMIA Assessment/Plan 68 year old male with PMHx IDDM and right BKA presents to the ED with worsening pain and foul odor drainage right lateral knee for past month 1) Right lateral knee wound, nonhealing with extending cellulitis -wound culture -zosyn/vanco -wound care -pain control-morphine only for breakthrough pain(history of ivda) -BS control -ID eval 2) IDDM -resume home regimen -BS checks and ISS for supplemental coverage -cw aceI for renal protection 3) HLD -on statin 4) Hep C untreated? -will verify with PCP DVT ppx-hep subq
[2019-01-10] MEDS: INSULIN SLIDING SCALE (NOVOLOG) 1 VIAL SQ SCH (21:30)
[2019-01-10] MEDS ORDERED: INSULIN (LEVEMIR) 100 UNITS/ML UNITS SQ ONE (22:16)
[2019-01-10] MEDS ORDERED: MORPHINE SULFATE 2 MG/ML VIAL IVPUSH PRN (22:39)
[2019-01-10] MEDS: INSULIN (LEVEMIR) 100 UNITS/ML UNITS SQ SCH (22:49)
[2019-01-10] MEDS: ATORVASTATIN CA 40 MG TABLET (FP) PO SCH (22:54)
[2019-01-10] MEDS: HEPARIN NA (PORCINE) 5,000 UNITS/ML 1ML VIAL SQ SCH (22:55)
[2019-01-11] MEDS ORDERED: DEXTROSE 5%-WATER - 50 ML IVPB ONE (01:57)
[2019-01-11] MEDS ORDERED: PIPERACILLIN/TAZOBACTAM 3.375 GM VIAL IVPB ONE (01:57)
[2019-01-11] MEDS: PIPERACILLIN/TAZOB 3.375 GM 3.375 GM in DEXTROSE 5%-WATER - 50 ML IVPB SCH (02:15)
[2019-01-11] MEDS: oxyCODONE HCL 5 MG TABLET PO PRN ×3 (06:45→21:58)
[2019-01-11] MEDS: ACETAMINOPHEN 325 MG TABLET (FP) PO PRN ×3 (06:45→21:59)
[2019-01-11] MEDS: INSULIN SLIDING SCALE (NOVOLOG) 1 VIAL SQ SCH ×4 (07:08→21:50)
[2019-01-11 08:10] VITALS: BMI 28.8
[2019-01-11] MEDS ORDERED: CALAMINE 8% TOPICAL LOTION 177 ML BOTTLE TP PRN (09:24)
[2019-01-11] MEDS ORDERED: methylPREDNISolone NA SUCC 40 MG/1 ML VIAL IVPUSH ONE (09:26)
--- NOTE | 2019-01-11 09:42 | PN ---
Progress Note, Physician Chief Complaint: Infected stump History of Present Illness: Called in Rapid response at 0915 for severe itching. Pt states he had mild itching at home as well but got severe this AM and now feel like his body is on "fire". Denies any SOB, chest tightness. As per patient, he has been itching for 2-3 months, went to PCP, was given abx 3 weeks ago. Pt doesn't recall the name. [facility] in the [place] #[phone]. Pt given Benadryl 50 mg IVP once Prednisone 40 mg IVP once Calamine lotion+ benadryl lotion PRN ordered. Pt lives in a private apartment. Reviewing previous records from last year, pt has had chronic pruritic rash. Dermatology was consult but wasn't seen by one. However, I believe, pt had adverse drug reaction to one of the antibiotics. Would d/c abx for now until evaluated by ID. - Current Medication List Current Medications: Active Medications Acetaminophen (Tylenol -) 650 mg PO Q4H PRN PRN Reason: PAIN 1-5 Acetaminophen (Tylenol -) 325 mg PO Q6H PRN PRN Reason: PAIN 6-10 Last Admin: 01/11/19 06:45 Dose: 325 mg Atorvastatin Calcium (Lipitor -) 40 mg PO HS [facility] Last Admin: 01/10/19 22:54 Dose: 40 mg Calamine (Calamine 8% Topical Lotion -) 1 applic TP QID PRN PRN Reason: FOR ITCHING Diphenhydramine HCl (Benadryl Injection -) 50 mg IVPUSH ONCE ONE Stop: 01/11/19 09:24 Heparin Sodium (Porcine) (Heparin -) 5,000 unit SQ BID [facility] Last Admin: 01/10/19 22:55 Dose: 5,000 unit Insulin Aspart (Novolog Vial Sliding Scale -) [address] [facility]; Protocol Last Admin: 01/11/19 07:08 Dose: Not Given Insulin Detemir (Levemir Vial) 40 units SQ BID [facility] Last Admin: 01/10/19 22:49 Dose: Not Given Lisinopril (Prinivil) 10 mg PO DAILY [facility] Metformin HCl (Glucophage -) 850 mg PO BIDAC [facility] Last Admin: 01/11/19 09:00 Dose: 850 mg Methylprednisolone Sodium Succinate (Solu-Medrol -) 40 mg IVPUSH ONCE ONE Stop: 01/11/19 09:27 Morphine Sulfate (Morphine Sulfate) 1 mg IVPUSH Q6H PRN PRN Reason: PAIN LEVEL 7 - 10 Last Admin: 01/11/19 02:45 Dose: 1 mg Nicotine (Nicoderm Patch -) 21 mg TD DAILY [facility] Oxycodone HCl (Roxicodone -) 5 mg PO Q6H PRN PRN Reason: PAIN 6-10 Last Admin: 01/11/19 06:45 Dose: 5 mg Zinc Acetate/Diphenhydramine (Benadryl 2% Cream) 1 applic TP BID [facility]UCY - Objective Vital Signs: Vital Signs Temperature 97.7 F 01/11/19 06:43 Pulse Rate 83 01/11/19 06:43 Respiratory Rate 18 01/11/19 06:43 Blood Pressure 145/82 01/11/19 06:43 O2 Sat by Pulse Oximetry (%) 96 01/10/19 22:00 Constitutional: Yes: Well Nourished, Anxious, Mild Distress Cardiovascular: Yes: Regular Rate and Rhythm Respiratory: Yes: Regular Gastrointestinal: Yes: Normal Bowel Sounds, Soft Genitourinary: Yes: WNL Musculoskeletal: Yes: WNL Extremities: Yes: Amputation (RBKA, Left) Labs: CBC, BMP 01/10/19 14:37 01/10/19 14:34 Problem List - Problems (1) Rash and nonspecific skin eruption Assessment/Plan: -Dermatology consult -For acute rash, pt given: Benadryl 50 mg IVP once Solumedrol 40 mg IVP once Calamine lotion prn Benadryl topical BID PRN -Benadryl 25 mg Q6h prn for itching Code(s): R21 - RASH AND OTHER NONSPECIFIC SKIN ERUPTION (2) Uncontrolled diabetes mellitus Assessment/Plan: -BGM AC HS -Diabetic low sodium diet -ISS -Levemir 40 U BID Code(s): E11.65 - TYPE 2 DIABETES MELLITUS WITH HYPERGLYCEMIA (3) Infection of amputation stump of right lower extremity Assessment/Plan: -Wound culture pending -IV abx as per ID -afebrile -no leukocytosis Code(s): T87.43 - INFECTION OF AMPUTATION STUMP, RIGHT LOWER EXTREMITY (4) Adverse drug reaction Assessment/Plan: -likely Vanco, saved both zosyn and vanco as allergy Code(s): T50.905A - ADVERSE EFFECT OF UNSP DRUG/MEDS/BIOL SUBST, INIT Assessment/Plan see problem list DVT prophylaxis
[2019-01-11] MEDS ORDERED: PT OWN MED DRAWER 7, Y5N ONE ×3 (09:49→12:47)
[2019-01-11] MEDS: HEPARIN NA (PORCINE) 5,000 UNITS/ML 1ML VIAL SQ SCH ×2 (10:44→21:50)
[2019-01-11] MEDS: NICOTINE 21 MG/24 HOURS TOPICAL PATCH TD SCH (10:45)
[2019-01-11] MEDS: INSULIN (LEVEMIR) 100 UNITS/ML UNITS SQ SCH ×2 (10:51→21:50)
[2019-01-11] MEDS ORDERED: INSULIN (LEVEMIR) 100 UNITS/ML UNITS SQ ONE (11:04)
[2019-01-11] MEDS: diphenhydrAMINE HCL 25 MG CAPSULE (FP) PO PRN ×2 (12:47→18:32)
[2019-01-11] MEDS: LISINOPRIL 10 MG TABLET (FP) PO SCH (13:41)
--- NOTE | 2019-01-11 17:04 | EKG ---
Test Reason : Blood Pressure : / mmHG Vent. Rate : 079 BPM Atrial Rate : 079 BPM P-R Int : 178 ms QRS Dur : 076 ms QT Int : 386 ms P-R-T Axes : 029 -18 053 degrees QTc Int : 442 ms NORMAL SINUS RHYTHM INFERIOR INFARCT (CITED ON OR BEFORE 01-APR-2018) ANTERIOR INFARCT (CITED ON OR BEFORE 01-APR-2018) ABNORMAL ECG WHEN COMPARED WITH ECG OF 01-APR-2018 15:38, NO SIGNIFICANT CHANGE WAS FOUND Confirmed by MD PAMELA, ISABEL ([id number]) on 01/11/2019 5:04:14 PM Referred By: Confirmed By:ISABEL SANTIAGO MD
[2019-01-11] MEDS ORDERED: INSULIN (NOVOLOG) ASPART 100 UNITS/ML 10ML VIAL ONE (17:21)
--- NOTE | 2019-01-11 17:51 | PN ---
Progress Note (short form) - Note Progress Note: ID CONSULT DICTATED AWAIT WOUND C/S OBSERVE OFF ANTIBIOTICS
[2019-01-11] MEDS: ATORVASTATIN CA 40 MG TABLET (FP) PO SCH (21:50)
[2019-01-12] MEDS ORDERED: PT OWN MED DRAWER 7, Y5N ONE ×3 (05:45→09:01)
[2019-01-12] MEDS: INSULIN SLIDING SCALE (NOVOLOG) 1 VIAL SQ SCH ×4 (06:05→21:14)
[2019-01-12] MEDS ORDERED: INSULIN (NOVOLOG) ASPART 100 UNITS/ML 10ML VIAL ONE (06:17)
[2019-01-12 07:24] LABS: BASO % 0.2 % (0-2.0); EOS % 0.2 % (0-4.5); HEMATOCRIT 31.1 % (35.4-49); HEMOGLOBIN 10.7 GM/dL (11.7-16.9); LYMPH % 15.9 % (8-40); MCH 31.3 pg (25.7-33.7); MCHC 34.4 g/dl (32.0-35.9); MEAN PLT VOLUME 8.5 fl (7.5-11.1); MONO % 6.7 % (3.8-10.2); PLATELET COUNT 116 K/MM3 (134-434); RBC 3.41 M/mm3 (4.00-5.60); WHITE BLOOD COUNT 6.6 K/mm3 (4.0-10.0)
[2019-01-12 07:45] LABS: ALBUMIN 1.9 g/dl (3.4-5.0); BILIRUBIN,TOTAL 0.8 mg/dL (0.2-1); BLOOD UREA NITROGEN 39.2 mg/dL (7-18); CALCIUM 8.2 mg/dL (8.5-10.1); CREATININE 1.4 mg/dL (0.55-1.3)
--- NOTE | 2019-01-12 08:51 | CONS ---
DATE OF CONSULTATION: DATE OF DICTATION: January 11, 2019 The patient is a 68-year-old male evaluated for infection at the right [id number] amputation stump site. He is a 68-year-old male with a history of diabetes mellitus, status post right [id number]-[id number]-nosr amputation in 2013, who was evaluated for infection at the site. He presented to the emergency room on January 10, 2019, with worsening pain and malodorous drainage from a wound on the lateral aspect of the stump site. He reports that the wound had been present for approximately 1 month and was secondary to an ill-fitted prosthesis. Over the past 4 days, he has had increased purulent drainage with foul odor. He reports being prescribed an antibiotic; however, he was unable to identify the name of the antibiotic approximately 3 weeks ago; however, the infection progressed. He denied any associated fevers or chills. PAST MEDICAL HISTORY: Positive for diabetes mellitus, hyperlipidemia, hypertension. ALLERGIES: No known allergies. MEDICATIONS: As an outpatient include: 1. Lipitor. 2. Levemir. 3. Lisinopril. 4. Metformin. SOCIAL HISTORY: He resides in the community. He is a former smoker. Denies history of alcohol or illicit drug use. REVIEW OF SYSTEMS: Neurologic: No loss of consciousness, seizure activity, or focal weakness. Cardiac: Negative chest pain or palpitations. Respiratory: Negative cough or sputum production. Gastrointestinal: Negative vomiting or diarrhea. Genitourinary: Negative for urinary tract infection. LABORATORY DATA: White count 5.4, hematocrit 31.9, platelets of 128, BUN 29, creatinine 1.1. Blood culture is pending. Wound culture preliminarily growing lactose fermenting group D strep. The patient was empirically treated with vancomycin and Zosyn. However, he had developed a generalized pruritus and erythema. The medications were discontinued. A rapid response was called because of severe pruritus and complaints of erythroderma. Patient then . IMPRESSION: 1. Soft tissue infection/abscess of the right ezwro-laz-royk amputation stump site. 2. call for result. Continue local wound care. Further recommendations pending culture results. Will follow. Thank you for the kind referral. KAE GRAJEDA M.D. [id number]
[2019-01-12] MEDS: NICOTINE 21 MG/24 HOURS TOPICAL PATCH TD SCH ×2 (09:03→09:15)
[2019-01-12] MEDS: INSULIN (LEVEMIR) 100 UNITS/ML UNITS SQ SCH ×2 (09:03→21:14)
[2019-01-12] MEDS: LISINOPRIL 10 MG TABLET (FP) PO SCH (09:03)
[2019-01-12] MEDS: HEPARIN NA (PORCINE) 5,000 UNITS/ML 1ML VIAL SQ SCH ×3 (09:03→21:13)
--- NOTE | 2019-01-12 11:40 | PN ---
Progress Note, Physician Chief Complaint: patient seen and examined [id number] about wound on hi right stump - Current Medication List Current Medications: Active Medications Acetaminophen (Tylenol -) 650 mg PO Q4H PRN PRN Reason: PAIN 1-5 Acetaminophen (Tylenol -) 325 mg PO Q6H PRN PRN Reason: PAIN 6-10 Last Admin: 01/11/19 21:59 Dose: 325 mg Atorvastatin Calcium (Lipitor -) 40 mg PO HS [facility] Last Admin: 01/11/19 21:50 Dose: 40 mg Calamine (Calamine 8% Topical Lotion -) 1 applic TP QID PRN PRN Reason: FOR ITCHING Last Admin: 01/11/19 12:48 Dose: 1 applic Collagenase (Santyl -) 1 applic TP DAILY [facility]; Protocol Diphenhydramine HCl (Benadryl -) 25 mg PO Q6H PRN PRN Reason: FOR ITCHING Last Admin: 01/11/19 18:32 Dose: 25 mg Heparin Sodium (Porcine) (Heparin -) 5,000 unit SQ BID [facility] Last Admin: 01/12/19 09:50 Dose: Not Given Insulin Aspart (Novolog Vial Sliding Scale -) 1 vial SQ ACHS [facility]; Protocol Last Admin: 01/12/19 06:05 Dose: Not Given Insulin Detemir (Levemir Vial) 40 units SQ BID [facility] Last Admin: 01/12/19 09:03 Dose: 40 units Morphine Sulfate (Morphine Sulfate) 1 mg IVPUSH Q6H PRN PRN Reason: PAIN LEVEL 7 - 10 Last Admin: 01/11/19 02:45 Dose: 1 mg Nicotine (Nicoderm Patch -) 21 mg TD DAILY [facility] Last Admin: 01/12/19 09:15 Dose: Not Given Oxycodone HCl (Roxicodone -) 5 mg PO Q6H PRN PRN Reason: PAIN 6-10 Last Admin: 01/11/19 21:58 Dose: 5 mg Zinc Acetate/Diphenhydramine (Benadryl 2% Cream) 1 applic TP BID [facility] Last Admin: 01/12/19 09:50 Dose: Not Given - Objective Vital Signs: Vital Signs Temperature 97.1 F L 01/12/19 06:00 Pulse Rate 76 01/12/19 06:00 Respiratory Rate 18 01/12/19 06:00 Blood Pressure 156/93 01/12/19 06:00 O2 Sat by Pulse Oximetry (%) 96 01/11/19 21:00 Constitutional: Yes: Calm Cardiovascular: Yes: Regular Rate and Rhythm, S1, S2 Respiratory: Yes: CTA Bilaterally Gastrointestinal: Yes: Normal Bowel Sounds, Soft Extremities: Yes: Other (right stump wound open with yellowish drainnage surrounding erythema left leg TMA) Edema: Yes Labs: CBC, BMP 01/12/19 06:25 01/12/19 06:25 Problem List - Problems (1) Infection of amputation stump of right lower extremity Assessment/Plan: wound culture vascular eval collagenase Microbiology 01/10/19 14:37 Stump Wound Culture - Preliminary Lactose Fermenting Neg Bacilli Group D Strep Or Entero Coccus possible start aztreonam will first have ID see patient Code(s): T87.43 - INFECTION OF AMPUTATION STUMP, RIGHT LOWER EXTREMITY (2) Diabetes mellitus Assessment/Plan: given increase creatinine stop metformin bgm hgba1c Code(s): E11.9 - TYPE 2 DIABETES MELLITUS WITHOUT COMPLICATIONS Qualifiers: Diabetes mellitus type: type 2 (3) HLD (hyperlipidemia) Assessment/Plan: lipid panel Code(s): E78.5 - HYPERLIPIDEMIA, UNSPECIFIED (4) Adverse drug reaction Assessment/Plan: possible to antibiotic benadryl, calamine litoin soulemdorl given derm eval awaiting ID eval Code(s): T50.905A - ADVERSE EFFECT OF UNSP DRUG/MEDS/BIOL SUBST, INIT (5) SINGH (acute kidney injury) Assessment/Plan: ivf stop acei stop metformin monitor renal fucntion Code(s): N17.9 - ACUTE KIDNEY FAILURE, UNSPECIFIED
[2019-01-12] MEDS ORDERED: SODIUM CHLORIDE 1,000 ML IV SCH (11:45)
--- NOTE | 2019-01-12 12:52 | PN ---
Progress Note, Physician History of Present Illness: REPORTS IMPROVEMENTIN PRURITIS NO C/O LIMB PAIN NO F/C - Current Medication List Current Medications: Active Medications Acetaminophen (Tylenol -) 650 mg PO Q4H PRN PRN Reason: PAIN 1-5 Acetaminophen (Tylenol -) 325 mg PO Q6H PRN PRN Reason: PAIN 6-10 Last Admin: 01/11/19 21:59 Dose: 325 mg Atorvastatin Calcium (Lipitor -) 40 mg PO HS [facility] Last Admin: 01/11/19 21:50 Dose: 40 mg Calamine (Calamine 8% Topical Lotion -) 1 applic TP QID PRN PRN Reason: FOR ITCHING Last Admin: 01/11/19 12:48 Dose: 1 applic Collagenase (Santyl -) 1 applic TP DAILY [facility]; Protocol Diphenhydramine HCl (Benadryl -) 25 mg PO Q6H PRN PRN Reason: FOR ITCHING Last Admin: 01/11/19 18:32 Dose: 25 mg Heparin Sodium (Porcine) (Heparin -) 5,000 unit SQ BID [facility] Last Admin: 01/12/19 09:50 Dose: Not Given Sodium Chloride (Normal Saline -) 1,000 mls @ 75 mls/hr IV ASDIR [facility] Last Admin: 01/12/19 12:41 Dose: 75 mls/hr Insulin Aspart (Novolog Vial Sliding Scale -) 1 vial SQ ACHS [facility]; Protocol Last Admin: 01/12/19 12:27 Dose: Not Given Insulin Detemir (Levemir Vial) 40 units SQ BID [facility] Last Admin: 01/12/19 09:03 Dose: 40 units Morphine Sulfate (Morphine Sulfate) 1 mg IVPUSH Q6H PRN PRN Reason: PAIN LEVEL 7 - 10 Last Admin: 01/11/19 02:45 Dose: 1 mg Nicotine (Nicoderm Patch -) 21 mg TD DAILY [facility] Last Admin: 01/12/19 09:15 Dose: Not Given Oxycodone HCl (Roxicodone -) 5 mg PO Q6H PRN PRN Reason: PAIN 6-10 Last Admin: 01/11/19 21:58 Dose: 5 mg Zinc Acetate/Diphenhydramine (Benadryl 2% Cream) 1 applic TP BID [facility] Last Admin: 01/12/19 09:50 Dose: Not Given - Objective Vital Signs: Vital Signs Temperature 97.1 F L 01/12/19 06:00 Pulse Rate 76 01/12/19 06:00 Respiratory Rate 18 01/12/19 06:00 Blood Pressure 156/93 01/12/19 06:00 O2 Sat by Pulse Oximetry (%) 96 01/11/19 21:00 Constitutional: Yes: No Distress Eyes: Yes: Conjunctiva Clear Cardiovascular: Yes: Regular Rate and Rhythm, S1, S2 Respiratory: Yes: CTA Bilaterally Gastrointestinal: Yes: Normal Bowel Sounds, Soft. No: Tenderness Extremities: Yes: Other (R BKA STUMP SITE WITH 1CM WOUND LATERAL ASPECT NO DRAINAGE) Labs: CBC, BMP 01/12/19 06:25 01/12/19 06:25 Assessment/Plan R BKA STUMP SITE WOUND INFECTION ? ADVERSE RX REACTION POSSIBLE PCN ALLERGY- PT DENIES KEFLEX 500MG PO BID SURGICAL F/U, LOCAL WOUND CARE
--- NOTE | 2019-01-12 16:49 | CONSULT ---
- Consultation REQUESTING PROVIDER: CONSULT REQUEST: We have been asked to surgically evaluate this patient for RLE stump infection PCP:Richelle Larios HISTORY OF PRESENT ILLNESS: 68 y/o M w/ PMHx DM2, HLD, right BKA/L tma for diabetic foot infections now a/w right lateral knee pain, ulceration and drainage. Pt reports he has been having issues with his prosthesis for the past few weeks. A month ago he noted the start of a blister. Pt was seen by his PCP and give abx, wound continued to worsen and he was seen at [facility] and given ABX (cannot recall name of either abx), reports having severe diarrhea, however he finished all but the last two pills. Denies fever/chills at home. Denies cp/sob, n/v/d. PMHx: as above PSHx: as above Home Medications Medication Instructions Recorded Atorvastatin Ca [Lipitor] 40 mg PO HS #30 tablet 04/02/18 Diphenhydramine HCl [Benadryl 50 mg PO Q6H PRN #60 capsule 04/02/18 Capsule -] Insulin (Levemir) [Levemir Vial] 40 units SQ BID #3 bot 04/02/18 Lisinopril 10 mg PO DAILY #30 tablet 04/02/18 Nicotine Patch [Nicoderm Patch -] 21 mg TD DAILY #14 patch 04/02/18 metFORMIN HCL [Metformin HCl] 850 mg PO BID #60 tablet 04/02/18 Allergies Allergy/AdvReac Type Severity Reaction Status Date / Time piperacillin [From Zosyn] Allergy Intermediate Rash Verified 01/11/19 09:27 tazobactam [From Zosyn] Allergy Intermediate Rash Verified 01/11/19 09:27 vancomycin Allergy Intermediate Rash Verified 01/11/19 10:44 REVIEW OF SYSTEMS: CONSTITUTIONAL: Absent: fever, chills CARDIOVASCULAR: Absent: chest pain, syncope RESPIRATORY: Absent: cough, shortness of breath GASTROINTESTINAL: Absent: abdominal pain PHYSICAL EXAM: GENERAL: Awake, alert, and fully oriented, in no acute distress. HEAD: Normal with no signs of trauma. LOWER EXTREMITIES: LLE with tma well healed, some scaling skin at distal stump, no open wounds. RLE BKA with approx 2x2cm circular ulcer at lateral aspect of proximal tibia, wound bed with fibrinous exudate, scant serous drainage, + surrounding edema, trace erythema. No foul odor. Vasc: 2+ b/l fem, L dp/pt 1+ Vital Signs Temperature 98.0 F 01/12/19 14:00 Pulse Rate 85 01/12/19 14:00 Respiratory Rate 18 01/12/19 14:00 Blood Pressure 135/84 01/12/19 14:00 O2 Sat by Pulse Oximetry (%) 96 01/11/19 21:00 Lab Results WBC 6.6 K/mm3 (4.0-10.0) 01/12/19 06:25 RBC 3.41 M/mm3 (4.00-5.60) L 01/12/19 06:25 Hgb 10.7 GM/dL (11.7-16.9) L 01/12/19 06:25 Hct 31.1 % (35.4-49) L 01/12/19 06:25 MCV 91.0 fl (80-96) 01/12/19 06:25 MCHC 34.4 g/dl (32.0-35.9) 01/12/19 06:25 RDW 16.0 % (11.9-15.9) H 01/12/19 06:25 Plt Count 116 K/MM3 (134-434) L 01/12/19 06:25 Sodium 141 mmol/L (136-145) 01/12/19 06:25 Potassium 4.0 mmol/L (3.5-5.1) 01/12/19 06:25 Chloride 110 mmol/L (98-107) H 01/12/19 06:25 Carbon Dioxide 28 mmol/L (21-32) 01/12/19 06:25 Anion Gap 4 MMOL/L (8-16) L 01/12/19 06:25 BUN 39.2 mg/dL (7-18) H 01/12/19 06:25 Creatinine 1.4 mg/dL (0.55-1.3) H 01/12/19 06:25 Random Glucose 140 mg/dL (74-106) H 01/12/19 06:25 Calcium 8.2 mg/dL (8.5-10.1) L 01/12/19 06:25 RLE xray (01/10/19): 2 views of the right leg reveal a below-the knee amputation with grossly intact proximal remnants of the tibia and fibula. A destructive process of soft tissue swelling is not seen basal site of soft tissue or foreign body. The knee joint appears intact. A/P: 68 y/o M w/ PMHx DM2, HLD, right BKA/L tma for diabetic foot infections now a/w right lateral knee pain, ulceration and drainage. Pt with infected ulcer secondary to ill-fitting prosthesis. Afebrile, no leukocytosis No osteo on xray -Local wound care with santyl daily -Elevate above the level of the heart when pt at rest -Abx per ID -Pt should follow closely with Dr Lincoln upon discharge -If ulcer worsens or pt develops fevers/leukocytosis MRI should be obtained d/w attending Dr Lincoln
[2019-01-12] MEDS: ATORVASTATIN CA 40 MG TABLET (FP) PO SCH (21:13)
[2019-01-13] MEDS: INSULIN SLIDING SCALE (NOVOLOG) 1 VIAL SQ SCH ×2 (06:26→10:49)
[2019-01-13 06:57] LABS: ALBUMIN 1.7 g/dl (3.4-5.0); BILIRUBIN,TOTAL 0.6 mg/dL (0.2-1); BLOOD UREA NITROGEN 41.4 mg/dL (7-18); CALCIUM 7.8 mg/dL (8.5-10.1); CREATININE 1.3 mg/dL (0.55-1.3); POTASSIUM 3.8 mmol/L (3.5-5.1); TOT PROT 5.5 g/dl (6.4-8.2)
[2019-01-13] MEDS ORDERED: COLLAGENASE CLOSTRIDIUM HIST. 30 GRAMS TUBE TP SCH (10:00)
--- NOTE | 2019-01-13 10:15 | PN ---
Progress Note, Physician Chief Complaint: Infected stump History of Present Illness: Rash improved Seen by ID, switched to PO Levaquin Also seen by Vascular surgery, no surgical intervention recommended at this time and to f/u o/p - Current Medication List Current Medications: Active Medications Acetaminophen (Tylenol -) 650 mg PO Q4H PRN PRN Reason: PAIN 1-5 Acetaminophen (Tylenol -) 325 mg PO Q6H PRN PRN Reason: PAIN 6-10 Last Admin: 01/11/19 21:59 Dose: 325 mg Atorvastatin Calcium (Lipitor -) 40 mg PO HS [facility] Last Admin: 01/12/19 21:13 Dose: 40 mg Calamine (Calamine 8% Topical Lotion -) 1 applic TP QID PRN PRN Reason: FOR ITCHING Last Admin: 01/11/19 12:48 Dose: 1 applic Collagenase (Santyl -) 1 applic TP DAILY [facility]; Protocol Diphenhydramine HCl (Benadryl -) 25 mg PO Q6H PRN PRN Reason: FOR ITCHING Last Admin: 01/11/19 18:32 Dose: 25 mg Heparin Sodium (Porcine) (Heparin -) 5,000 unit SQ BID [facility] Last Admin: 01/12/19 21:13 Dose: 5,000 unit Sodium Chloride (Normal Saline -) 1,000 mls @ 75 mls/hr IV ASDIR [facility] Last Admin: 01/12/19 12:41 Dose: 75 mls/hr Insulin Aspart (Novolog Vial Sliding Scale -) 1 vial SQ ACHS [facility]; Protocol Last Admin: 01/13/19 06:26 Dose: Not Given Insulin Detemir (Levemir Vial) 40 units SQ BID [facility] Last Admin: 01/12/19 21:14 Dose: 40 units Morphine Sulfate (Morphine Sulfate) 1 mg IVPUSH Q6H PRN PRN Reason: PAIN LEVEL 7 - 10 Last Admin: 01/11/19 02:45 Dose: 1 mg Nicotine (Nicoderm Patch -) 21 mg TD DAILY [facility] Last Admin: 01/12/19 09:15 Dose: Not Given Oxycodone HCl (Roxicodone -) 5 mg PO Q6H PRN PRN Reason: PAIN 6-10 Last Admin: 01/11/19 21:58 Dose: 5 mg Zinc Acetate/Diphenhydramine (Benadryl 2% Cream) 1 applic TP BID [facility] Last Admin: 01/12/19 23:41 Dose: 1 applic - Objective Vital Signs: Vital Signs Temperature 97.4 F L 01/12/19 18:00 Pulse Rate 81 01/12/19 18:00 Respiratory Rate 18 01/12/19 18:00 Blood Pressure 148/79 01/12/19 18:00 O2 Sat by Pulse Oximetry (%) 99 01/12/19 09:00 Constitutional: Yes: Well Nourished, No Distress, Calm Cardiovascular: Yes: Regular Rate and Rhythm Respiratory: Yes: Regular Genitourinary: Yes: WNL Musculoskeletal: Yes: WNL Extremities: Yes: Amputation (RBKA, Left toes) Edema: No Peripheral Pulses WNL: Yes Neurological: Yes: Alert, Oriented Psychiatric: Yes: Alert, Oriented Labs: CBC, BMP 01/12/19 06:25 01/13/19 06:00 Problem List - Problems (1) Rash and nonspecific skin eruption Assessment/Plan: -Improved -Dermatology consult o/p -Continue Calamine lotion prn -Benadryl topical BID PRN -Benadryl 25 mg Q6h prn for itching Code(s): R21 - RASH AND OTHER NONSPECIFIC SKIN ERUPTION (2) Uncontrolled diabetes mellitus Assessment/Plan: -BGM AC HS -Diabetic low sodium diet -ISS- humalog ordered -Levemir 40 U BID -F/U with Endocrinology outpatient Code(s): E11.65 - TYPE 2 DIABETES MELLITUS WITH HYPERGLYCEMIA (3) Infection of amputation stump of right lower extremity Assessment/Plan: -Wound culture: Microbiology 01/10/19 14:37 Blood Culture - Preliminary Blood - Peripheral Venous NO GROWTH OBTAINED AFTER 48 HOURS, INCUBATION TO CONTINUE FOR 3 DAYS. 01/10/19 14:37 Blood Culture - Preliminary Blood - Peripheral Venous NO GROWTH OBTAINED AFTER 48 HOURS, INCUBATION TO CONTINUE FOR 3 DAYS. 01/10/19 14:37 Gram Stain - Final Stump Wound Culture - Final Klebsiella Pneumoniae Enterococcus Faecalis -IV abx as per ID -afebrile -no leukocytosis -F/U with Vascular surgery o/p -Levaquin 250 mg po daily x 7 days Code(s): T87.43 - INFECTION OF AMPUTATION STUMP, RIGHT LOWER EXTREMITY (4) Adverse drug reaction Assessment/Plan: -likely Vanco, saved both zosyn and vanco as allergy Code(s): T50.905A - ADVERSE EFFECT OF UNSP DRUG/MEDS/BIOL SUBST, INIT Assessment/Plan see problem list D/C home
--- NOTE | 2019-01-13 10:15 | DS ---
Physical Examination Vital Signs: Vital Signs Temperature 97.4 F L 01/12/19 18:00 Pulse Rate 81 01/12/19 18:00 Respiratory Rate 18 01/12/19 18:00 Blood Pressure 148/79 01/12/19 18:00 O2 Sat by Pulse Oximetry (%) 99 01/12/19 09:00 Findings/Remarks: 68 year old male PMHx DM2, HLD, right BKA presents with progressively worsening right lateral knee pain, ulceration and drainage. Patient states about a month ago he used a prosthesis that was too big and cut his leg and since then he has had a nonhealing wound. He saw PCP and was put on PO antibiotics which he finished about 2 weeks ago without improvement. He denies fever/chills, nvd. no cp, sob, palpitations Constitutional: Yes: Well Nourished, No Distress, Calm Cardiovascular: Yes: Regular Rate and Rhythm Respiratory: Yes: Regular Gastrointestinal: Yes: Normal Bowel Sounds, Soft Renal/: Yes: WNL Musculoskeletal: Yes: WNL Extremities: Yes: Amputation (RBKA,Left toes) Edema: No Peripheral Pulses WNL: Yes Wound/Incision: Yes: Open to air Neurological: Yes: Alert, Oriented Psychiatric: Yes: Alert, Oriented Labs: CBC, BMP 01/12/19 06:25 01/13/19 06:00 Discharge Summary Reason For Visit: DISCHARGE FROM WOUND Current Active Problems SINGH (acute kidney injury) (Acute) Adverse drug reaction (Acute) Diabetes mellitus (Acute) HLD (hyperlipidemia) (Acute) Infection of amputation stump of right lower extremity (Acute) Wound discharge (Acute) Hospital Course: Laboratory Last Values WBC 6.6 K/mm3 (4.0-10.0) 01/12/19 06:25 RBC 3.41 M/mm3 (4.00-5.60) L 01/12/19 06:25 Hgb 10.7 GM/dL (11.7-16.9) L 01/12/19 06:25 Hct 31.1 % (35.4-49) L 01/12/19 06:25 MCV 91.0 fl (80-96) 01/12/19 06:25 MCH 31.3 pg (25.7-33.7) 01/12/19 06:25 MCHC 34.4 g/dl (32.0-35.9) 01/12/19 06:25 RDW 16.0 % (11.9-15.9) H 01/12/19 06:25 Plt Count 116 K/MM3 (134-434) L 01/12/19 06:25 MPV 8.5 fl (7.5-11.1) 01/12/19 06:25 Absolute Neuts (auto) 5.1 K/mm3 (1.5-8.0) 01/12/19 06:25 Neutrophils % 77.0 % (42.8-82.8) 01/12/19 06:25 Lymphocytes % 15.9 % (8-40) D 01/12/19 06:25 Monocytes % 6.7 % (3.8-10.2) 01/12/19 06:25 Eosinophils % 0.2 % (0-4.5) D 01/12/19 06:25 Basophils % 0.2 % (0-2.0) 01/12/19 06:25 Nucleated RBC % 0 % (0-0) 01/12/19 06:25 Sodium 141 mmol/L (136-145) 01/13/19 06:00 Potassium 3.8 mmol/L (3.5-5.1) 01/13/19 06:00 Chloride 109 mmol/L (98-107) H 01/13/19 06:00 Carbon Dioxide 27 mmol/L (21-32) 01/13/19 06:00 Anion Gap 5 MMOL/L (8-16) L 01/13/19 06:00 BUN 41.4 mg/dL (7-18) H 01/13/19 06:00 Creatinine 1.3 mg/dL (0.55-1.3) 01/13/19 06:00 Est GFR (CKD-EPI)AfAm 65.44 01/13/19 06:00 Est GFR (CKD-EPI)NonAf 56.46 01/13/19 06:00 POC Glucometer 161 UNITS (80-120) 01/13/19 04:49 Random Glucose 164 mg/dL (74-106) H 01/13/19 06:00 Hemoglobin A1c % 9.1 % (4.2-6.3) H 01/13/19 06:00 Calcium 7.8 mg/dL (8.5-10.1) L 01/13/19 06:00 Total Bilirubin 0.6 mg/dL (0.2-1) 01/13/19 06:00 AST 90 U/L (15-37) H 01/13/19 06:00 ALT 55 U/L (13-61) 01/13/19 06:00 Alkaline Phosphatase 112 U/L (45-117) 01/13/19 06:00 Total Protein 5.5 g/dl (6.4-8.2) L 01/13/19 06:00 Albumin 1.7 g/dl (3.4-5.0) L 01/13/19 06:00 Triglycerides 712 mg/dL (0-150) H 01/13/19 06:00 Cholesterol 195 mg/dL (50-200) 01/13/19 06:00 Total LDL Cholesterol 83 mg/dL (5-100) 01/13/19 06:00 HDL Cholesterol 18 mg/dL (40-60) L 01/13/19 06:00 Microbiology 01/10/19 14:37 Blood - Peripheral Venous Blood Culture - Preliminary NO GROWTH OBTAINED AFTER 48 HOURS, INCUBATION TO CONTINUE FOR 3 DAYS. 01/10/19 14:37 Blood - Peripheral Venous Blood Culture - Preliminary NO GROWTH OBTAINED AFTER 48 HOURS, INCUBATION TO CONTINUE FOR 3 DAYS. 01/10/19 14:37 Stump Gram Stain - Final 01/10/19 14:37 Stump Wound Culture - Final Klebsiella Pneumoniae Enterococcus Faecalis Vital Signs Temp 97.4 F L 01/12/19 18:00 Pulse 81 01/12/19 18:00 Resp 18 01/12/19 18:00 BP 148/79 01/12/19 18:00 Pulse Ox 99 01/12/19 09:00 Intake & Output 01/12/19 01/12/19 01/13/19 11:59 23:59 11:59 Intake Total 530 300 Output Total 400 1225 Balance -400 -695 300 Intake: IV 300 Normal Saline - 1,000 ml 300 @ 75 mls/hr IV ASDIR ON LICENSE OF [facility] Rx#:[id number] Oral 530 Output: Urine 400 1225 Void 400 1225 Other: Voiding Method Urinal Toilet Bowel Movement No No No Condition: Stable - Instructions Diet, Activity, Other Instructions: Start Levaquin 250 mg, 1 tab daily x 7 days Apply Santyl to the infected wound daily Follow up with Dr Carmelo Lincoln at [facility], make appt by calling at [phone] Follow up with PCP- Dr Richelle Larios Also, Follow up with Endocrinology for your uncontrolled Diabetes Mellitus Referrals: Carmelo Lincoln DO [Staff Physician] - Richelle Larios MD [Primary Care Provider] - Disposition: HOME - Home Medications Comprehensive Discharge Medication List: Ambulatory Orders Atorvastatin Ca [Lipitor] 40 mg PO HS #30 tablet 04/02/18 Diphenhydramine HCl [Benadryl Capsule -] 50 mg PO Q6H PRN #60 capsule 04/02/18 Insulin (Levemir) [Levemir Vial] 40 units SQ BID #3 bot 04/02/18 Lisinopril 10 mg PO DAILY #30 tablet 04/02/18 Nicotine Patch [Nicoderm Patch -] 21 mg TD DAILY #14 patch 04/02/18 metFORMIN HCL [Metformin HCl] 850 mg PO BID #60 tablet 04/02/18 Acetaminophen [Tylenol .Regular Strength -] 325 mg PO Q6H PRN tablet 01/13/19 Calamine 8% Topical Lotion - 1 applic TP QID PRN #1 bottle 01/13/19 Collagenase Clostridium Hist. [Santyl -] 1 applic TP DAILY #1 tube 01/13/19 Diphenhydramine HCl/Zinc Acet [Benadryl 2% Cream] 1 applic TP BID #1 tube Insulin Lispro [Humalog Kwikpen U-100] See Protocol SQ AC #1 insuln.pen levoFLOXacin [Levaquin -] 250 mg PO DAILY@0600 #7 tablet 01/13/19
[2019-01-13] MEDS: INSULIN (LEVEMIR) 100 UNITS/ML UNITS SQ SCH (10:42)
[2019-01-13] MEDS: HEPARIN NA (PORCINE) 5,000 UNITS/ML 1ML VIAL SQ SCH (10:42)
[2019-01-13] MEDS: NICOTINE 21 MG/24 HOURS TOPICAL PATCH TD SCH (10:48)
[2019-01-13 10:50] VITALS: BP 147/85; PULSE 89; TEMP 98.2
[2019-01-13] MEDS ORDERED: PT OWN MED DRAWER 7, Y5N ONE (12:33)
== END 2019-01-13 13:50 | disposition home or self-care (01) | DRG 565 ==
LOC: JER 13:27 → JERBED 17:43 → J5S 21:29
PROVIDERS: ADMIT Family Medicine; ATTEND Family Medicine
DX: T87.43 Infection of amputation stump, right lower extremity (principal); L03.115 Cellulitis of right lower limb; N17.9 Acute kidney failure, unspecified; E11.622 Type 2 diabetes mellitus with other skin ulcer; E78.5 Hyperlipidemia, unspecified; B18.2 Chronic viral hepatitis C; E11.65 Type 2 diabetes mellitus with hyperglycemia; R21 Rash and other nonspecific skin eruption; T36.0X5A Adverse effect of penicillins, initial encounter; B96.1 Klebsiella pneumoniae [K. pneumoniae] as the cause of diseases classified elsewhere; Y83.9 Surgical procedure, unspecified as the cause of abnormal reaction of the patient, or of later complication, without mention of misadventure at the time of the procedure
CPT/HCPCS: 36415; 71045-TC-FY; 73562-TC-RT-FY; 73590-TC-RT-FY; 80053; 80061; 82962; 83036; 83721; 85025; 87040; 87070; 87186; 87205; 93005; 93010; 99283-25; J0131; J1644; J7030